=== PATIENT | female | born 1980 | race Caucasian/White ===

== ENCOUNTER 2019-04-06 15:11 | Inpatient (IN) | payer OTHER ==
[~2019-04-06] VITALS: Ht 157.5 cm; Wt 83.7 kg
[2019-04-06] MEDS ORDERED: RINGERS SOLUTION,LACTATED 1,000 ML IV PRN (15:26)
[2019-04-06] MEDS ORDERED: LIDOCAINE/PF 1% 30 ML VIAL INJ PRN (15:30)
[2019-04-06] MEDS ORDERED: METOCLOPRAMIDE HCL 5 MG/ML 2 ML VIAL IVP PRN (15:30)
[2019-04-06] MEDS ORDERED: METHYLERGONOVINE MALEATE 0.2 MG/ML VIAL IM PRN (15:30)
[2019-04-06] MEDS ORDERED: DINOPROSTONE 10 MG VAGINAL SUPPOSITORY VG ONE (15:30)
[2019-04-06] MEDS ORDERED: CITRIC ACID/SODIUM CITRATE 30 ML SOLUTION UDCUP PO PRN (15:30)
[2019-04-06 15:46] VITALS: BP 105/58
[2019-04-06] MEDS ORDERED: PREN1TAB80 PO (15:51)
[2019-04-06 15:59] LABS: BASOPHILS % (AUTO) 0.6 % (0.0-2.0); EOSINOPHILS % (AUTO) 0.9 % (1.0-6.0); HEMATOCRIT 36.6 % (36-46); HEMOGLOBIN 12.3 g/dL (12.0-16.0); LYMPHOCYTES # (AUTO) 1.5 K/uL (1.0-4.8); LYMPHOCYTES % (AUTO) 16.3 % (22.0-44.0); MEAN CORPUSCULAR HGB CONC 33.5 G/dL (31.0-37.0); MEAN CORPUSCULAR VOLUME 99 fL (80-100); MONOCYTES # (AUTO) 0.5 K/uL (0.1-1.0); MONOCYTES % (AUTO) 5.5 % (2.0-9.0); NEUTROPHILS # (AUTO) 7.2 K/uL (1.8-7.7); NEUTROPHILS % (AUTO) 76.7 % (40.0-70.0); PLATELET COUNT (AUTO)-OB 239 K/uL (150-450); RED BLOOD CELL COUNT(AUTO) 3.72 MIL/uL (4.00-5.20); RED CELL DISTRIBUTION WIDTH 14.4 % (11.5-14.5)
[2019-04-06] MEDS: RINGERS SOLUTION,LACTATED 1,000 ML IV SCH ×2 (16:01→23:03)
[2019-04-06] MEDS: OXYGEN THERAPY IH SCH (20:00)
[2019-04-07] MEDS ORDERED: MISOPROSTOL 25 MCG TABLET VG ONE (04:40)
[2019-04-07] MEDS ORDERED: OXYTOCIN 30 UNITS/LACT RINGERS 500 ML IV ONE (04:46)
[2019-04-07] MEDS: OXYGEN THERAPY IH SCH ×2 (08:00→20:00)
[2019-04-07] MEDS: MISOPROSTOL 50 MCG TABLET PO SCH ×4 (09:01→20:00)
[2019-04-07] MEDS: RINGERS SOLUTION,LACTATED 1,000 ML IV SCH ×3 (11:28→23:26)
[2019-04-07] MEDS ORDERED: OXYTOCIN 30 UNITS/LACT RINGERS 500 ML IV PRN (12:35)
[2019-04-07] MEDS: FentaNYL CITRATE-PF 100 MCG/2 ML VIAL IVP PRN ×4 (13:40→14:59)
[2019-04-07] MEDS ORDERED: ROPIVACAINE HCL/PF 0.2% 100 ML ED ONE (16:16)
[2019-04-07] MEDS ORDERED: DiphenhydrAMINE HCL 50 MG/ML VIAL IVP PRN (16:45)
[2019-04-07] MEDS ORDERED: ONDANSETRON HCL 4 MG/2 ML VIAL IVP PRN (16:45)
[2019-04-07] MEDS ORDERED: ROPIVACAINE HCL/PF 0.2% 100 ML ED PRN (16:45)
[2019-04-07] MEDS ORDERED: MISOPROSTOL 100 MCG TABLET ONE (18:17)
[2019-04-07] MEDS ORDERED: MISOPROSTOL 100 MCG TABLET PR ONE (18:20)
[2019-04-07] MEDS ORDERED: TRANEXAMIC ACID 1,000 MG in DEXTROSE 5%-WATER 50 ML IV ONE (18:30)
[2019-04-07] MEDS ORDERED: MAGNESIUM HYDROXIDE SUSPENSION 30 ML UDCUP PO PRN (19:30)
[2019-04-07] MEDS ORDERED: OxyCODONE HCL/ACETAMINOPHEN 5-325 MG TABLET PO PRN (19:30)
[2019-04-07] MEDS ORDERED: GLYCERIN/WITCH HAZEL LEAF 40 PADS JAR TP PRN (19:30)
[2019-04-07] MEDS ORDERED: LIDOCAINE/PF 1% 30 ML VIAL INJ PRN (19:30)
[2019-04-07] MEDS ORDERED: BENZOCAINE 20%/MENTHOL 56 GM SPRAY CANISTER TP PRN (19:30)
[2019-04-07] MEDS ORDERED: LANOLIN 7 GM OINTMENT TP PRN (19:30)
[2019-04-08 05:32] LABS: BASOPHILS % (AUTO) 0.2 % (0.0-2.0); EOSINOPHILS % (AUTO) 0 % (1.0-6.0); HEMATOCRIT 30.3 % (36-46); LYMPHOCYTES # (AUTO) 1.7 K/uL (1.0-4.8); LYMPHOCYTES % (AUTO) 8.8 % (22.0-44.0); MEAN CORPUSCULAR HEMOGLOBIN 32.7 pg (26.0-34.0); MEAN CORPUSCULAR HGB CONC 32.9 G/dL (31.0-37.0); MEAN CORPUSCULAR VOLUME 99 fL (80-100); MONOCYTES % (AUTO) 5.1 % (2.0-9.0); NEUTROPHILS # (AUTO) 16.4 K/uL (1.8-7.7); PLATELET COUNT (AUTO)-OB 226 K/uL (150-450); RED BLOOD CELL COUNT(AUTO) 3.06 MIL/uL (4.00-5.20); RED CELL DISTRIBUTION WIDTH 14.2 % (11.5-14.5)
[2019-04-08 05:38] LABS: NEUTROPHILS % (AUTO) 85.9 % (40.0-70.0)
[2019-04-08 05:51] LABS: PLATELET MORPHOLOGY COMMENT GIANT PLTS PRESENT
[2019-04-08] MEDS: OxyCODONE HCL/ACETAMINOPHEN 5-325 MG TABLET PO PRN ×2 (06:17→16:37)
[2019-04-08] MEDS: IBUPROFEN 800 MG TABLET PO PRN ×2 (08:27→16:36)
[2019-04-08] MEDS ORDERED: DSS100 PO (15:45)
[2019-04-08] MEDS ORDERED: IBUP-2071 PO (15:45)
[2019-04-08] MEDS ORDERED: FERR-89 PO (15:46)
== END 2019-04-08 20:25 | disposition home or self-care (01) | DRG 807 ==
LOC: OBSVTOIN 15:11 → 4S 15:11
PROVIDERS: ADMIT Obstetrics & Gynecology; ATTEND Obstetrics & Gynecology
PROC: 10E0XZZ Delivery of Products of Conception, External Approach (ICD-10-PCS; principal; 2019-04-07)
PROC: 0W8NXZZ Division of Female Perineum, External Approach (ICD-10-PCS; 2019-04-07)
PROC: 3E0R3BZ Introduction of Anesthetic Agent into Spinal Canal, Percutaneous Approach (ICD-10-PCS; 2019-04-07)
PROC: 00HU33Z Insertion of Infusion Device into Spinal Canal, Percutaneous Approach (ICD-10-PCS; 2019-04-07)
DX: O80 Encounter for full-term uncomplicated delivery (principal); Z37.0 Single live birth; Z3A.39 39 weeks gestation of pregnancy
CPT/HCPCS: 86850; 86900; 86901; J2590; J2795; J3010; J3490; J7060; J7120